=== PATIENT | female | born 1985 | race Two or more races ===

== ENCOUNTER 2020-05-14 02:33 | Emergency (ER) | payer OTHER ==
[~2020-05-14] VITALS: Ht 167.6 cm; Wt 64.9 kg
--- NOTE | 2020-05-14 02:37 | NUR ---
Dr. Collazo at bedside for MSE.
--- NOTE | 2020-05-14 02:45 | NUR ---
Pt provided urine sample, sent to lab.
[2020-05-14 02:56] LABS: *URINE HCG, QUAL NEGATIVE (NEGATIVE)
[2020-05-14 02:56] LABS: BASOPHILS # (AUTO) 0.1 K/uL (0.0-8.0); BASOPHILS % (AUTO) 1.2 % (0.0-2.0); EOSINOPHILS # (AUTO) 0.3 K/uL (0.0-0.7); EOSINOPHILS % (AUTO) 5.2 % (0.0-7.0); HEMOGLOBIN 12.6 g/dL (10.9-14.3); LYMPHOCYTES # (AUTO) 2.8 K/uL (20.0-40.0); MEAN CORPUSCULAR HEMOGLOBIN 30.9 uug (24.7-32.8); MEAN CORPUSCULAR HGB CONC 33 g/dL (32.3-35.6); MEAN CORPUSCULAR VOLUME 92.8 fL (75.5-95.3); MONOCYTES # (AUTO) 0.6 K/uL (2.0-10.0); MONOCYTES % (AUTO) 9.9 % (0.0-11.0); NEUTROPHILS # (AUTO) 2.2 K/uL (1.8-8.9); NEUTROPHILS % (AUTO) 36.7 % (38.5-71.5); PLATELET COUNT (AUTO) 206 K/uL (179-408); RED BLOOD CELL COUNT(AUTO) 4.09 MIL/uL (3.63-4.92); WHITE BLOOD COUNT (AUTO) 5.9 K/uL (3.8-11.8)
[2020-05-14] MEDS ORDERED: PANTOPRAZOLE SODIUM 40 MG VIAL IV ONE (03:00)
[2020-05-14 03:01] LABS: POTASSIUM 3.2 mmol/L (3.5-5.1)
[2020-05-14] MEDS ORDERED: PANTOPRAZOLE SODIUM 40 MG VIAL ONE (03:03)
[2020-05-14 03:07] LABS: BILIRUBIN,DIRECT 0.1 mg/dL (0.0-0.2); BILIRUBIN,TOTAL 0.5 mg/dL (0.2-1.0); TOTAL PROTEIN, SERUM 7.6 g/dL (6.4-8.2)
[2020-05-14] MEDS ORDERED: ACETAMINOPHEN 325 MG TABLET PO ONE (03:30)
[2020-05-14] MEDS ORDERED: MAG HYDROX/AL HYDROX/SIMETH 30 ML LIQUID UDC PO ONE (03:30)
[2020-05-14] MEDS ORDERED: LIDOCAINE VISCUS 2% 15 ML UDC MM ONE (03:30)
[2020-05-14] MEDS ORDERED: ACETAMINOPHEN 325 MG TABLET ONE (03:37)
[2020-05-14] MEDS ORDERED: MAG HYDROX/AL HYDROX/SIMETH 30 ML LIQUID UDC ONE (03:38)
[2020-05-14] MEDS ORDERED: LIDOCAINE VISCUS 2% 15 ML UDC ONE (03:38)
--- NOTE | 2020-05-14 04:07 | NUR ---
PT states feeling much better, still has a small amount of abd pain left.
[2020-05-14] MEDS ORDERED: SUCRALFATE 1 G TABLET PO SCH (05:00)
[2020-05-14] MEDS ORDERED: SUCRALFATE 1 G/10 ML LIQUID UDC ONE (05:06)
--- NOTE | 2020-05-14 05:37 | NUR ---
Patient discharged to home in stable condition. Written and verbal after care instructions given. Patient verbalizes understanding of instructions. Stressed follow up or return to ER for worsening s/s. Patient out of ER with steady gait, no acute signs of distress, VSS, all belongings taken, IV site discontinued, provided a summary of labs.
[2020-05-14 05:43] VITALS: BP 94/61
== END 2020-05-14 05:44 | disposition home or self-care (01) ==
LOC: ER 02:36
DX: R10.13 Epigastric pain (principal); Z87.19 Personal history of other diseases of the digestive system; Z87.09 Personal history of other diseases of the respiratory system; M35.9 Systemic involvement of connective tissue, unspecified
CPT/HCPCS: 36415; 80048; 80076; 83690; 84703; 85025; 96374; 99284; C9113; A4663